=== PATIENT | female | born 1990 | race Hispanic/Latino ===

== ENCOUNTER 2020-02-11 13:33 | Emergency (ER) | payer OTHER ==
--- OUTSIDE RECORDS SUMMARY | 2020-02-11 13:36 | XMS REPORT | Summary of Care ---
Author Author [facility] - Health Organization [facility] - Health Address Unknown Phone Unavailable Care Team Providers Care Replanting Machine Crewman Name Role Phone Pcp, Patient Does Not Have A PCP Reason for Visit * Reason Comments ROUTINE VISIT Encounter Details Care Team Description Date Type Department Dari Tate MD [address] [place], [place] [id number] Encounter for care in second trimester of first (Primary Dx); 16 weeks gestation of 12/25/2019 Routine [facility] Women's Visit Health Care, [address], [facility] [address] [place], [place] [id number] Allergies No Known Allergiesdocumented as of this encounter (statuses as of 12/25/2019) Medications End Date Status Medication Sig Dispensed Refills Start Date Active meclizine (ANTIVERT) 25 1 po up to 4 20 Tab 0 11/18/201 mg tablet times daily 4 for dizziness Active FA/mv,Ca,iron,min/lycopen Take by 0 e/lut (MULTIVITAL ORAL) mouth. Active vitamin B complex Take by 0 (BALANCE B-150 ORAL) mouth. Active PNV Comb Take by 0 No.59/Iron/FA/DHA mouth. (-DHA ORAL) documented as of this encounter (statuses as of 12/25/2019) Active Problems Problem Noted Date Encounter for Nexplanon removal 09/05/2016 Breakthrough bleeding on Nexplanon 09/05/2016 Anxiety 04/17/2012 Estimated Date of Delivery Comments Yes 06/08/2020 Based on last menstrual period of 09/02/2019 documented as of this encounter (statuses as of 12/25/2019) Immunizations Name Administration Dates Next Due Chickenpox Disease 01/25/1998 DTAP 11/15/1996, 01/26/1994, 04/28/1993, 03/03/1993, 01/06/1993 HEPATITIS A 06/06/2007, 12/06/2006 HIB 4 Dose Schedule 01/26/1994, 04/28/1993, 03/03/1993, 01/06/1993 HPV 01/02/2008, 08/29/2007, 06/06/2007 Hep B, Adol or Pedi 10/27/1993, 05/26/1993, 04/28/1993 Dosage Influenza Virus Vaccine 10/29/2019 Quad .5 mL IM 6+ MO MMR 11/15/1996, 01/26/1994 Measles 04/28/1993 Meningococcal 06/06/2007 Polysaccharide (groups A, C, Y and W-135) conjugate vaccine (MCV4P) Polio (IPV/OPV) 11/15/1996, 01/26/1994, 03/03/1993, 01/06/1993 Tdap 12/06/2006 documented as of this encounter Social History Date Tobacco Use Types Packs/Day Years Used Never Smoker Smokeless Tobacco: Never Used Tobacco Cessation: Counseling Given: No Drinks/Week oz/Week Comments Alcohol Use socially Yes Estimated Date of Delivery Comments Yes 06/08/2020 Based on last menstrual period of 09/02/2019 Sex Assigned at Date Recorded Not on file Industry Job Start Date Occupation Not on file Not on file Not on file Travel End Travel History Travel Start No recent travel history available. documented as of this encounter Last Filed Vital Signs Reading Time Taken Comments Vital Sign 125/67 12/25/2019 11:01 AM TELEVISION ANNOUNCER Blood Pressure 88 12/25/2019 11:01 AM TELEVISION ANNOUNCER Pulse - - Temperature - - Respiratory Rate - - Oxygen Saturation - - Inhaled Oxygen Concentration 70.8 kg (156 lb) 12/25/2019 11:01 AM TELEVISION ANNOUNCER Weight 154.9 cm (5' 1") 12/25/2019 11:01 AM TELEVISION ANNOUNCER Height 29.48 12/25/2019 11:01 AM TELEVISION ANNOUNCER Body Mass Index documented in this encounter Progress Notes * Dari Tate MD - 12/25/2019 10:30 AM TELEVISION ANNOUNCER Chief complaint: Chief Complaint Patient presents with ROUTINE VISIT HPI Mechelle Saleh is a 29 year old female presents for first OB visit in thi s office. She is transferring care from [facility]. Positive movement. No leaka ge of fluid, vaginal bleeding or contractions. Histories OB History Para Term AB Living 1 0 0 0 0 0 SAB TAB Ectopic Multiple Live Births 0 0 0 0 # Outcome Date GA Lbr Sage/2nd Weight Sex Delivery Anes PTL Lv 1 Current Past Medical History: Diagnosis Date Anxiety 04/17/2012 Depression HSV (herpes simplex virus) anogenital infection STD (sexually transmitted disease) HSV Varicella without mention of complication 1997 Family History Problem Relation Age of Onset Allergies Mother Cancer Mother Diabetes Paternal Grandfather Cancer Paternal Grandfather liver Hypertension Paternal Grandmother Hypertension Paternal Grandfather Uterine Cancer NoFHx Ovarian Cancer NoFHx Colon Cancer NoFHx Family Status Relation Name Status Mo cervical cancer Alive dx age 34, hysterectomy PGFa PGMo (Not Specified) PGFa (Not Specified) Fa Alive MGMo Alive MGFa Alive NoFHx (Not Specified) Past Surgical History: Procedure Laterality Date APPENDECTOMY 2011 INSERTION DRUG IMPLANT DEVICE Left 06-01-16 Social History Socioeconomic History Marital status: Single Spouse name: Not on file Number of children: Not on file Years of education: Not on file Highest education level: Not on file Occupational History Not on file Social Needs Financial resource strain: Not on file Food insecurity: Worry: Not on file Inability: Not on file Transportation needs: Medical: Not on file Non-medical: Not on file Tobacco Use Smoking status: Never Smoker Smokeless tobacco: Never Used Substance and Sexual Activity Alcohol use: Yes Comment: socially Drug use: No Sexual activity: Yes Partners: Male Lifestyle Physical activity: Days per week: Not on file Minutes per session: Not on file Stress: Not on file Relationships Social connections: Talks on phone: Not on file Gets together: Not on file Attends mandaeism service: Not on file Active member of club or organization: Not on file Attends meetings of clubs or organizations: Not on file Relationship status: Not on file Intimate partner violence: Fear of current or ex partner: Not on file Emotionally abused: Not on file Physically abused: Not on file Forced sexual activity: Not on file Other Topics Concern Not on file Social History Narrative Lives with mom, 2 brothers and mom's fiance. Attends [employer], 10th grade.Family h as 2 dogs. No one smokes. Social History Substance and Sexual Activity Sexual Activity Yes Partners: Male Labs No new labs Radiology Radiology pending. Allergies Mechelle has No Known Allergies. Medications Mechelle has a current medication list which includes the following prescription(s ): pnv comb no.59/iron/fa/dha, fa/mv,ca,iron,min/lycopene/lut, vitamin b complex , and meclizine. Review of Systems Psychiatric/Behavioral: The patient is nervous/anxious. BP 125/67 | Pulse 88 | Ht 5' 1" (1.549 m) | Wt 156 lb (70.8 kg) | LMP 2018 | BMI 29.48 kg/m Pregravid BMI: 28.7 Physical Exam Vitals reviewed. Constitutional: She is oriented to person, place, and time. She appears well-dev eloped, well-nourished and well-groomed. Pulmonary/Chest: Normal inspiratory effort. Abdominal: No tenderness present. There is no rigidity and no guarding. Neuro/Psychiatric: She has a normal mood and affect. She is oriented to person, place, and time. Assessment/Plan Encounter for care in second trimester of first (primary enc ounter diagnosis) Comment: MARYLU visit. S/s PTL reviewed. Patient declines Quad screen. Plan: CANCELED: QUAD SCRN RTC 4 wks Dari Tate MD VISION ANNOUNCER documented in this encounter Plan of Treatment Care Team Description Date Type Specialty 1, Clc Mfm Usg Room 01/17/2020 Account Information Clerk Maternal Medicine Visit Dari Tate MD [address] [place] [address] [phone] 01/22/2020 Routine Obstetrics & Gynecology Visit Health Maintenance Due Date Last Done Comments DTaP,Tdap,and Td Vaccines 10/29/2020 12/06/2006, 11/15/1996, 01/26/1994, Postponed from 12/06/2016 (7 - Td) Additional history exists (Alternative Guidelines) PAP SMEAR 09/26/2021 09/26/2018, 05/25/2016, 12/22/2014, Additional history exists INFLUENZA VACCINE Completed 10/29/2019 PNEUMOCOCCAL 0-64 YEARS Aged Out No longer eligible based COMBINED SERIES on patient's age to complete this topic documented as of this encounter Results Not on filedocumented in this encounter Visit Diagnoses Diagnosis Encounter for care in second trimester of first - Primary 16 weeks gestation of state, incidental documented in this encounter Insurance Type Payer Benefit Subscriber ID Effective Phone Address Plan / Dates Group Medicaid [employer] COMM [place]HC [place] xxxxxxxxx 2019- PLAN - MANAGED MEDICAID STAR Present documented as of this encounter Advance Directives Patient Retail Banker Explanation Type Date Recorded Advance Directives and Living Will Power of Polymer Tester
--- OUTSIDE RECORDS SUMMARY | 2020-02-11 13:36 | XMS REPORT | Summary of Care ---
Author Author [facility] - Health Organization [facility] - Health Address Unknown Phone Unavailable Care Team Providers Care Lie Detector Operator Name Role Phone Pcp, Patient Does Not Have A PCP Reason for Visit * Reason Comments ROUTINE VISIT Encounter Details Care Team Description Date Type Department Dari Tate MD [address] [place] [address] [phone] Encounter for care in second trimester of first (Primary Dx); Urinary frequency; 20 weeks gestation of 01/22/2020 Routine [facility] Women's Visit Health Care, [address], [facility] [address] [place] [address] Allergies No Known Allergiesdocumented as of this encounter (statuses as of 01/22/2020) Medications End Date Status Medication Sig Dispensed Refills Start Date Active PNV Comb Take by 0 No.59/Iron/FA/DHA mouth. (-DHA ORAL) Active loratadine (CLARITIN Take by 0 ORAL) mouth as needed. 01/29/2020 Active Nitrofurantoin&Nit. Take 1 14 capsule 0 Macrocryst (MACROBID) 100 capsule by 0 mg capsuleIndications: mouth 2 (two) Urinary frequency, 20 times daily weeks gestation of for 7 days. 01/22/2020 Discontinued meclizine (ANTIVERT) 25 1 po up to 4 20 Tab 0 11/18/201 mg tablet times daily 4 for dizziness 01/22/2020 Discontinued FA/mv,Ca,iron,min/lycopen Take by 0 e/lut (MULTIVITAL ORAL) mouth. 01/22/2020 Discontinued vitamin B complex Take by 0 (BALANCE B-150 ORAL) mouth. documented as of this encounter (statuses as of 01/22/2020) Active Problems Problem Noted Date Obesity (BMI 30-39.9) 01/22/2020 Encounter for Nexplanon removal 09/05/2016 Breakthrough bleeding on Nexplanon 09/05/2016 Anxiety 04/17/2012 Estimated Date of Delivery Comments Yes 06/08/2020 Based on last menstrual period of 09/02/2019 documented as of this encounter (statuses as of 01/22/2020) Immunizations Name Administration Dates Next Due Chickenpox [...] Signs Reading Time Taken Comments Vital Sign 134/81 01/22/2020 10:59 AM CDT Blood Pressure 95 01/22/2020 10:59 AM CDT Pulse - - Temperature - - Respiratory Rate - - Oxygen Saturation - - Inhaled Oxygen Concentration 74.4 kg (164 lb 1.6 oz) 01/22/2020 10:59 AM CDT Weight 154.9 cm (5' 1") 01/22/2020 10:59 AM CDT Height 31.01 01/22/2020 10:59 AM CDT Body Mass Index documented in this encounter Progress Notes * Dari Tate MD - 01/22/2020 10:45 AM CDT Chief complaint: Chief Complaint Patient presents with ROUTINE VISIT HPI Mechelle Saleh is a 29 year old female presents w/ family for OB visit. Positive movement. No leakage of fluid, vaginal bleeding or contractions. Histories [...] file Gets together: Not on file Attends restoration service: Not on file Active member of [...] mom, 2 brothers and mom's fiance. Attends [employer], 10th grade.Family h as 2 dogs. No one smokes. Social History Substance and Sexual Activity Sexual Activity Yes Partners: Male Labs Labs are pending. Radiology No new radiology. Allergies Mechelle has No Known Allergies. Medications Mechelle has a current medication list which includes the following prescription(s ): nitrofurantoin&nit. macrocryst, loratadine, and pnv comb no.59/iron/fa/dha. Review of Systems Genitourinary: Positive for frequency. Negative for dysuria. X 1 wk, also sensation of incomplete void. BP 134/81 | Pulse 95 | Ht 5' 1" (1.549 m) | Wt 164 lb 1.6 oz (74.4 kg) | LMP 09/02/2019 | BMI 31.01 kg/m Pregravid BMI: 28.7 Physical Exam Vitals [...] diagnosis) Comment: MARYLU visit. S/s PTL reviewed. Plan: RTC 4 wks Urinary frequency Comment: U/A w/ blood, UC pending. ABX rx'd. S/s pyelo reviewed. Plan: URINE CULTURE, Nitrofurantoin&Nit. Macrocryst (MACROBID) 100 mg capsule Dari Tate MD documented in this encounter Plan of Treatment Care Team Description Date Type Specialty Dari Tate MD [address] [place] [address] [phone] 02/19/2020 Routine Obstetrics & Gynecology Visit Dari Tate MD [address] [place] [address] [phone] 03/04/2020 Routine Obstetrics & Gynecology Visit Date/Time Name Type Priority Associated Diagnoses 01/22/2020 1:10 PM CDT URINE CULTURE LAB Routine Urinary frequency 20 weeks gestation of Health Maintenance Due Date Last Done Comments [...] in second trimester of first - Primary Urinary frequency 20 weeks gestation of state, incidental documented in this encounter Insurance Type Payer Benefit Subscriber ID Effective Phone Address Plan / Dates Group Medicaid [employer] COMM [place]HC [place] xxxxxxxxx 2019- PLAN - MANAGED MEDICAID STAR Present documented as of this encounter Advance Directives Patient Sterile Tech Explanation Type Date Recorded Advance Directives and Living Will Power of Director Of Hotel
--- OUTSIDE RECORDS SUMMARY | 2020-02-11 13:36 | XMS REPORT | Summary of Care ---
Author Author [facility] - Health Organization [facility] - Health Address Unknown Phone Unavailable Care Team Providers Care Blunger Name Role Phone Pcp, Patient Does Not Have A PCP Reason for Visit * Reason Comments ULTRASOUND * (Routine) Referred By Contact Referred To Contact Status Reason Specialty Diagnoses / Procedures Na Mendoza, [place] [address] [place] [id number] Authorized Maternal Diagnoses Medicine Supervision of other normal , antepartum P rocedures CONSULT MATERNAL MEDICINE ULTRASOUND Preferred Location: [place] Encounter Details Care Team Description Date Type Department Filiberto Garner MD [address] [facility] [id number] [place], [place] [id number] Kkia Soto MD [address] [facility] [id number] [place], [place] [id number] 1, Clc Mfm Usg Room Uterine size-date discrepancy in second trimester; Encounter for screening for cervical length 01/13/2020 Advertising Production Manager [facility], [address], [address] [place] [address] Allergies No Known Allergiesdocumented as of this encounter (statuses as of 01/13/2020) Medications End Date Status Medication Sig Dispensed [...] as of this encounter (statuses as of 01/13/2020) Active Problems Problem Noted Date Encounter for Nexplanon removal 09/05/2016 Breakthrough bleeding on Nexplanon 09/05/2016 Anxiety 04/17/2012 Estimated Date of Delivery Comments Yes 06/08/2020 Based on last menstrual period of 09/02/2019 documented as of this encounter (statuses as of 01/13/2020) Immunizations Name Administration Dates Next Due Chickenpox [...] Used Never Smoker Smokeless Tobacco: Never Used Drinks/Week oz/Week Comments Alcohol Use socially Yes Estimated Date of Delivery Comments Yes 06/08/2020 Based on last menstrual period of 09/02/2019 Sex Assigned at Date Recorded Not on file Industry Job Start Date Occupation Not on file Not on file Not on file Travel End Travel History Travel Start No recent travel history available. documented as of this encounter Last Filed Vital Signs Not on filedocumented in this encounter Plan of Treatment Care Team Description Date Type Specialty Dari Tate MD [address] [place] [address] [phone] 01/22/2020 Routine Obstetrics & Gynecology Visit Health [...] filedocumented in this encounter Visit Diagnoses Diagnosis Uterine size-date discrepancy in second trimester Uterine size date discrepancy, antepartum condition or complication Encounter for screening for cervical length documented in this encounter Insurance Type Payer Benefit Subscriber ID Effective Phone Address Plan / Dates Group Medicaid [employer] COMM [place]HC [place] xxxxxxxxx 2019- PLAN - MANAGED MEDICAID STAR Present documented as of this encounter Advance Directives Patient Heavy Mobile Equipment Operator Explanation Type Date Recorded Advance Directives and Living Will Power of Gis Instructor
--- OUTSIDE RECORDS SUMMARY | 2020-02-11 13:36 | XMS REPORT | Summary of Care ---
Author Author [facility] - Health Organization [facility] - Health Address Unknown Phone Unavailable Care Team Providers Care Feed Management Advisor Name Role Phone Pcp, Patient Does Not Have A PCP Encounter Details Care Team Description Date Type Department Doctor Unassigned, [place] [address] [place] [address] 12/17/[address] [facility] [address] [facility] [place] [phone] Allergies No Known Allergiesdocumented as of this encounter (statuses as of 01/18/2020) Medications End Date Status Medication Sig Dispensed [...] as of this encounter (statuses as of 01/18/2020) Active Problems Problem Noted Date Encounter for Nexplanon removal 09/05/2016 Breakthrough bleeding on Nexplanon 09/05/2016 Anxiety 04/17/2012 Estimated Date of Delivery Comments Yes 06/08/2020 Based on last menstrual period of 09/02/2019 documented as of this encounter (statuses as of 01/18/2020) Immunizations Name Administration Dates Next Due Chickenpox [...] Date Type Specialty Dari Tate MD [address] [place] [address] [phone] 01/22/2020 Routine Obstetrics & Gynecology Visit Health [...] Results Not on filedocumented in this encounter Insurance Type Payer Benefit Subscriber ID Effective Phone Address Plan / Dates Group Medicaid [employer] COMM [place]HC [place] xxxxxxxxx 2019- PLAN - MANAGED MEDICAID STAR Present documented as of this encounter Advance Directives Patient Smoking Tobacco Packer Hand Explanation Type Date Recorded Advance Directives and Living Will Power of Parts Expediter
--- OUTSIDE RECORDS SUMMARY | 2020-02-11 13:36 | XMS REPORT | Summary of Care ---
Author Author [facility] - Health Organization [facility] - Health Address Unknown Phone Unavailable Care Team Providers Care Review Appraiser Name Role Phone Pcp, Patient Does Not Have A PCP Reason for Visit * Reason Comments Assessment Encounter Details Care Team Description Date Type Department Dari Tate MD [address] [place] [address] [phone] Assessment 02/11/2020 Telephone [facility], [address], [address] [place] [address] Allergies No Known Allergiesdocumented as of this encounter (statuses as of 02/11/2020) Medications End Date Status Medication Sig Dispensed Refills Start Date Active PNV Comb Take by 0 No.59/Iron/FA/DHA mouth. (-DHA ORAL) Active loratadine (CLARITIN Take by 0 ORAL) mouth as needed. documented as of this encounter (statuses as of 02/11/2020) Active Problems Problem Noted Date Obesity (BMI 30-39.9) 01/22/2020 Encounter for Nexplanon removal 09/05/2016 Breakthrough bleeding on Nexplanon 09/05/2016 Anxiety 04/17/2012 Estimated Date of Delivery Comments Yes 06/08/2020 Based on last menstrual period of 09/02/2019 documented as of this encounter (statuses as of 02/11/2020) Immunizations Name Administration Dates Next Due Chickenpox [...] Dari Tate MD [address] [facility] [place] [address] [phone] 02/17/2020 Telemedicine Obstetrics & Gynecology Visit Dari Tate MD [address] [place] [address] [phone] 03/04/2020 Routine Obstetrics & Gynecology Visit Health Maintenance [...] as of this encounter Advance Directives Patient Brewing Technician Explanation Type Date Recorded Advance Directives and Living Will Power of Auto Tire Recapper
--- OUTSIDE RECORDS SUMMARY | 2020-02-11 13:36 | XMS REPORT | Summary of Care ---
Author Author [facility] - Health Organization [facility] - Health Address Unknown Phone Unavailable Care Team Providers Care Part Time Receptionist Name Role Phone Pcp, Patient Does Not Have A PCP Reason for Referral * (Routine) Referred By Contact Referred To Contact Status Reason Specialty Diagnoses / Procedures Na Mendoza [address] [address] New Request Maternal Diagnoses Medicine Supervision of other normal , antepartum P rocedures CONSULT MATERNAL MEDICINE ULTRASOUND Preferred Location: [facility] Reason for Visit * Reason Comments Care Encounter Details Care Team Description Date Type Department Na Mendoza [address] [id number] Supervision of other normal , antepartum (Primary Dx) 11/26/2019 Routine [facility] Women's Visit Healthcare-[address] [place] [address] Allergies No Known Allergiesdocumented as of this encounter (statuses as of 11/26/2019) Medications End Date Status Medication Sig Dispensed [...] as of this encounter (statuses as of 11/26/2019) Active Problems Problem Noted Date Encounter for Nexplanon removal 09/05/2016 Breakthrough bleeding on Nexplanon 09/05/2016 Anxiety 04/17/2012 Estimated Date of Delivery Comments Yes 06/08/2020 Based on last menstrual period of 09/02/2019 documented as of this encounter (statuses as of 11/26/2019) Immunizations Name Administration Dates Next Due Chickenpox [...] Signs Reading Time Taken Comments Vital Sign 129/89 11/26/2019 4:37 PM LUMBER GRADER Blood Pressure 100 11/26/2019 4:37 PM LUMBER GRADER Pulse - - Temperature - - Respiratory Rate - - Oxygen Saturation - - Inhaled Oxygen Concentration 68.5 kg (151 lb) 11/26/2019 4:37 PM LUMBER GRADER Weight 154.9 cm (5' 1") 11/26/2019 4:37 PM LUMBER GRADER Height 28.53 11/26/2019 4:37 PM LUMBER GRADER Body Mass Index documented in this encounter Patient Instructions * Patient Instructions* Dayana Farley RN - 11/26/2019 4:15 PM LUMBER GRADER : Your Second Trimester Changes Each day, you and your baby are changing and growing together. Heres a quick look at whats happening to both of you. How you are changing Even when you dont notice it, your body is adapting to meet the needs of your growing baby. The changes in your body might also affect your moods. Your body Your uterus expands as baby grows. As the weeks go by, you will feel more pressu re on your bladder, stomach, and other organs. You may notice some skin color ch anges on your forehead, nose, or cheeks. Freckles may darken, and moles may grow . You may notice a darker line on your abdomen between your belly button and pub ic bone in the midline. Your moods The second trimester is often easier than the first. Still, be prepared for mood swings. These are due to the increase in hormones (chemicals that affect the way organs work) produced by your body. These mood swings are a normal part of pre gnancy. How your baby is growing Month 4 Babys heartbeat may be heard with a Doppler (hand-held ultrasound device) by 9 to 10 weeks.Eyebrows, eyelashes, and fingernails begin to form. Month 5 You may feel your baby move. After a growth spurt, your baby nears 10 inches. Mo nth 6 Babys fingerprints have formed. Your baby weighs about 1to 2 pounds and is about 12 inches long. Junko Tada last reviewed this educational content on 11/13/201719994062-4130 The [employer]. [address] [place] [address], [place], [place] [address]. All rights reserved. This information is not intended as a substitute for pro fessional medical care. Always follow your healthcare professional's instruction s. ER GRADER documented in this encounter Progress Notes * Na Mendoza FNP - 11/26/2019 4:15 PM LUMBER GRADER Chief complaint: Chief Complaint Patient presents with Care Presents for routine visit She reports being seen at outside ER on 11/16. She started having vomiting, unable to keep down fluids. She was given IV fluids and felt much better She reports only having occ nausea, which improving(previously took vitamin b/un jacqueline) She desires quad screen only MFM referral placed She would like to follow-up with Dr Tate RTC x 4 weeks Histories OB History Para Term AB Living [...] NoFHx Family Status Relation Name Status Mo Alive PGFa PGMo (Not Specified) PGFa (Not Specified) NoFHx (Not Specified) Past Surgical History: Procedure [...] file Gets together: Not on file Attends catholic service: Not on file Active member of [...] mom, 2 brothers and mom's fiance. Attends [employer], 10th grade.Family h as 2 dogs. No one smokes. Social History Substance and Sexual Activity Sexual Activity Yes Partners: Male Labs No new labs Radiology No new radiology. Allergies Mechelle has No Known Allergies. Medications Mechelle has a current medication list which includes the following prescription(s ): pnv comb no.59/iron/fa/dha, fa/mv,ca,iron,min/lycopene/lut, vitamin b complex , and meclizine. Review of Systems Constitutional: Negative. Gastrointestinal: Positive for nausea. Improving Genitourinary: Negative. BP 129/89 | Pulse 100 | Ht 5' 1" (1.549 m) | Wt 151 lb (68.5 kg) | LMP 09/02 | BMI 28.53 kg/m Pregravid BMI: 28.7 Physical Exam Vitals reviewed. Constitutional: She is oriented to person, place, and time. Her body habitus is normal. Pulmonary/Chest: Normal inspiratory effort. Neuro/Psychiatric: She has a normal mood and affect. She is oriented to person, place, and time. Skin: Skin normal. PHYSICAL: General Exam: Skin: Normal Extremities: Normal Assessment/Plan Supervision of other normal , antepartum (primary encounter diagnosis) Plan: CONSULT MATERNAL MEDICINE ULTRASOUND Preferred Location: [facility] GRADER documented in this encounter Plan of Treatment Care Team Description Date Type Specialty Dari Tate MD [address] [facility] [place] [address] [phone] 12/25/2019 Routine Obstetrics & Gynecology Visit Health Maintenance [...] filedocumented in this encounter Visit Diagnoses Diagnosis Supervision of other normal , antepartum - Primary documented in this encounter Insurance Type Payer Benefit Subscriber ID Effective Phone Address Plan / Dates Group Medicaid [employer] COMM [employer] [place] xxxxxxxxx 2019- PLAN - MANAGED MEDICAID STAR Present documented as of this encounter Advance Directives Patient Net Manager Explanation Type Date Recorded Advance Directives and Living Will Power of Duplicating Machine Mechanic
--- OUTSIDE RECORDS SUMMARY | 2020-02-11 13:36 | XMS REPORT ---
Author Author [facility] Address Unknown Phone Unavailable Care Team Providers Care Sanitation Officer Name Role Phone Unavailable Unavailable Problems This patient has no known problems. Allergies, Adverse Reactions, Alerts This patient has no known allergies or adverse reactions. Medications This patient has no known medications.
--- OUTSIDE RECORDS SUMMARY | 2020-02-11 13:36 | XMS REPORT | Summary of Care ---
Author Author [facility] - Health Organization [facility] - Health Address Unknown Phone Unavailable Care Team Providers Care First Mate Name Role Phone Pcp, Patient Does Not Have A PCP Encounter Details Care Team Description Date Type Department Doctor Unassigned, [facility] [address] [place] [address] 12/26/2019 Orders Only [facility] [address] [place] [address] Allergies No Known Allergiesdocumented as of this encounter (statuses as of 12/26/2019) Medications End Date Status Medication Sig Dispensed [...] as of this encounter (statuses as of 12/26/2019) Active Problems Problem Noted Date Encounter for Nexplanon removal 09/05/2016 Breakthrough bleeding on Nexplanon 09/05/2016 Anxiety 04/17/2012 Estimated Date of Delivery Comments Yes 06/08/2020 Based on last menstrual period of 09/02/2019 documented as of this encounter (statuses as of 12/26/2019) Immunizations Name Administration Dates Next Due Chickenpox [...] Specialty 1, Clc Mfm Usg Room 01/17/2020 Bed Teacher Maternal Medicine Visit Dari Tate MD [address] [place] [address] [phone] 01/22/2020 Routine Obstetrics & Gynecology Visit Health [...] this topic documented as of this encounter Procedures Comments Procedure Name Priority Date/Time Associated Diagnosis [id number] CONSENT Routine 12/26/2019 12:01 AM BRAND MANAGER documented in this encounter Results Not on filedocumented in this encounter Insurance Type Payer Benefit Subscriber ID Effective Phone Address Plan / Dates Group Medicaid [employer] COMM [place] [place] xxxxxxxxx 2019- PLAN - MANAGED MEDICAID STAR Present documented as of this encounter Advance Directives Patient Medication Nurse Explanation Type Date Recorded Advance Directives and Living Will Power of Food Service Employee
--- OUTSIDE RECORDS SUMMARY | 2020-02-11 13:36 | XMS REPORT | Summary of Care ---
Author Author [facility] - Health Organization [facility] - Health Address Unknown Phone Unavailable Care Team Providers Care Reception Centre Manager Name Role Phone Pcp, Patient Does Not Have A PCP Reason for Visit * Reason Comments ROUTINE VISIT Encounter Details Care Team Description Date Type Department Dari Tate MD [address] [place] [address] [phone] Encounter for care in second trimester of first (Primary Dx); Urinary frequency; 20 weeks gestation of 01/22/2020 Routine [facility] Women's Visit [facility] Care, [address], [facility] [address] [place] [address] Allergies No Known Allergiesdocumented as [...] file Gets together: Not on file Attends sabianist service: Not on file Active member of [...] [address] [place] [address] [phone] 02/19/2020 Routine Obstetrics & Gynecology Visit Dari Tate MD [address] [place] [address] [phone] 03/04/2020 Routine Obstetrics & Gynecology Visit Date/Time [...] as of this encounter Advance Directives Patient Manager Cancer Explanation Type Date Recorded Advance Directives and Living Will Power of Residential Treatment Specialist
--- OUTSIDE RECORDS SUMMARY | 2020-02-11 13:36 | XMS REPORT | Summary of Care ---
Author Author [facility] - Health Organization [facility] - Health Address Unknown Phone Unavailable Care Team Providers Care Nutrition Instructor Name Role Phone Pcp, Patient Does Not Have A PCP Reason for Visit * Reason Comments Assessment Encounter Details Care Team Description Date Type Department Dari Tate MD [address] [place] [address] [phone] Assessment 02/03/2020 Telephone [facility], [address], [address] [place] [address] Allergies No Known Allergiesdocumented as of this encounter (statuses as of 02/03/2020) Medications End Date Status Medication Sig Dispensed Refills Start Date Active PNV Comb Take by 0 No.59/Iron/FA/DHA mouth. (-DHA ORAL) Active loratadine (CLARITIN Take by 0 ORAL) mouth as needed. documented as of this encounter (statuses as of 02/03/2020) Active Problems Problem Noted Date Obesity (BMI 30-39.9) 01/22/2020 Encounter for Nexplanon removal 09/05/2016 Breakthrough bleeding on Nexplanon 09/05/2016 Anxiety 04/17/2012 Estimated Date of Delivery Comments Yes 06/08/2020 Based on last menstrual period of 09/02/2019 documented as of this encounter (statuses as of 02/03/2020) Immunizations Name Administration Dates Next Due Chickenpox [...] Tate MD [address] [place] [address] [phone] 02/19/2020 Routine Obstetrics & Gynecology Visit Dari Tate MD [address] [place] [address] [phone] 03/04/2020 Routine Obstetrics & Gynecology Visit Health [...] as of this encounter Advance Directives Patient Glass Beveller Explanation Type Date Recorded Advance Directives and Living Will Power of Peoplesoft Hrms Developer
--- OUTSIDE RECORDS SUMMARY | 2020-02-11 13:36 | XMS REPORT | Summary of Care ---
Author Author [facility] - Health Organization [facility] - Health Address Unknown Phone Unavailable Care Team Providers Care Airbrush Painter Name Role Phone Pcp, Patient Does Not Have A PCP Encounter Details Care Team Description Date Type Department Doctor Unassigned, [place] [address] [place] [address] 11/26/2019 Orders Only [facility] [address] [place] [address] Allergies No Known Allergiesdocumented as of this encounter (statuses as of 12/05/2019) Medications End Date Status Medication Sig Dispensed [...] as of this encounter (statuses as of 12/05/2019) Active Problems Problem Noted Date Encounter for Nexplanon removal 09/05/2016 Breakthrough bleeding on Nexplanon 09/05/2016 Anxiety 04/17/2012 Estimated Date of Delivery Comments Yes 06/08/2020 Based on last menstrual period of 09/02/2019 documented as of this encounter (statuses as of 12/05/2019) Immunizations Name Administration Dates Next Due Chickenpox [...] Specialty Dari Tate MD [address] [place] [address] [phone] 12/25/2019 Routine Obstetrics & Gynecology Visit 1, Clc Mfm Usg Room 01/17/2020 Flanging Roll Operator Maternal Medicine Visit Health Maintenance Due Date Last Done [...] Comments Procedure Name Priority Date/Time Associated Diagnosis PUBLIC TRANSPORTATION INSPECTOR CLINIC ULTRASOUND Routine 11/26/2019 12:01 AM ELECTRICIAN SHOP documented in this encounter Results Not on filedocumented in this encounter Insurance Type Payer Benefit Subscriber ID Effective Phone Address Plan / Dates Group Medicaid [employer] COMM [employer] [place] xxxxxxxxx 2019- PLAN - MANAGED MEDICAID STAR Present documented as of this encounter Advance Directives Patient Verification Engineer Explanation Type Date Recorded Advance Directives and Living Will Power of Recyclable Products Sorter
[2020-02-11] MEDS ORDERED: CLEOCIN HCL150 MG PO (14:07)
== END 2020-02-11 14:19 | disposition home or self-care (01) ==
LOC: FSED 13:33
DX: L05.01 Pilonidal cyst with abscess (principal); Z33.1 Pregnant state, incidental
CPT/HCPCS: 99282